=== PATIENT | male | born 1980 | race Caucasian/White ===

== ENCOUNTER 2020-03-06 14:50 | Outpatient (CLI) | payer OTHER, SELFPAY ==
[2020-03-07 14:38] LABS: SARS-CoV-2 RNA PCR Negative
== END 2020-03-06 14:51 | disposition home or self-care (01) ==
LOC: CHSLAB 14:54
PROVIDERS: PCP Nurse Practitioner Family; Visit Provider Nurse Practitioner Family
DX: Z20.828 Contact with and (suspected) exposure to other viral communicable diseases (principal)
CPT/HCPCS: 87635; C9803; U0003

== ENCOUNTER 2020-03-30 08:34 | Outpatient (CLI) | payer OTHER, SELFPAY ==
[2020-03-31 13:55] LABS: SARS-CoV-2 RNA PCR Negative
== END 2020-03-30 08:35 | disposition home or self-care (01) ==
LOC: CHSLAB 08:37
PROVIDERS: PCP Nurse Practitioner Family; Visit Provider Nurse Practitioner Family
DX: Z20.828 Contact with and (suspected) exposure to other viral communicable diseases (principal)
CPT/HCPCS: 87635; C9803; U0003

== ENCOUNTER 2020-06-01 08:46 | Outpatient (CLI) | payer OTHER, SELFPAY ==
[2020-06-02 01:18] LABS: SARS-CoV-2 RNA PCR Negative
== END 2020-06-01 08:47 | disposition home or self-care (01) ==
LOC: CHSLAB 08:49
PROVIDERS: PCP Family Medicine; Visit Provider Family Medicine
DX: Z20.828 Contact with and (suspected) exposure to other viral communicable diseases (principal)
CPT/HCPCS: 87635; C9803; U0003

== ENCOUNTER 2020-08-06 15:53 | Outpatient (CLI) | payer OTHER, SELFPAY ==
[2020-08-07 19:17] LABS: SARS-CoV-2 RNA PCR Negative
== END 2020-08-06 15:54 | disposition home or self-care (01) ==
LOC: CHSLAB 15:58
PROVIDERS: PCP Nurse Practitioner Family; Visit Provider Nurse Practitioner Family
DX: Z20.822 Contact with and (suspected) exposure to COVID-19 (principal)
CPT/HCPCS: C9803; U0003; U0005

== ENCOUNTER 2020-08-19 08:25 | Outpatient (CLI) | payer OTHER, SELFPAY ==
--- NOTE | ~2020-08-19 | XR_ITS ---
EXAMINATION: XR UGIAC w barium swallow DATE: 08/19/2020 09:14 INDICATION: Dysphagia, oropharyngeal phase TECHNIQUE: The patient drank thick barium, gas-producing crystals, and thin barium. Conventional supi ne abdomen radiographs and fluoroscopy of the esophagus, stomach, and proximal small bowel were perfo rmed. Fluoroscopy exposure time was 2.1 minutes. The DAP for this procedure was 19.207 Gycm2. COMPARISON: None. FINDINGS: There is no mass or stricture of the esophagus. Esophageal motility is normal. There is no hiatal hernia. There was a moderate amount of spontaneous gastroesophageal reflux. The stomach and pr oximal small bowel show normal folding patterns. IMPRESSION: 1. Moderate amount of spontaneous gastroesophageal reflux. Reviewed, dictated and finalized at location A. AN BPM DEVELOPER
== END 2020-08-19 08:26 | disposition home or self-care (01) ==
PROVIDERS: PCP Nurse Practitioner Family; Visit Provider Internal Medicine Gastroenterology
DX: R13.12 Dysphagia, oropharyngeal phase (principal); K21.9 Gastro-esophageal reflux disease without esophagitis
CPT/HCPCS: 74246

== ENCOUNTER 2021-03-03 10:32 | Outpatient (CLI) | payer OTHER, SELFPAY ==
[2021-03-03 10:45] LABS: Hematocrit 46.8 % (40.0-54.0); Hemoglobin 15.7 g/dL (14.0-18.0); Mean Corpuscular HGB Conc 33.5 g/dL (32.0-36.0); Mean Corpuscular Hemoglobin 29.3 pg (27.0-31.0); Mean Corpuscular Volume 87.3 fL (78.0-102.0); Mean Platelet Volume 11.2 fl (8.7-11.0); Platelet Count Result 220 K/mm3 (150-420); Red Blood Count 5.36 M/mm3 (4.70-6.10); Red Cell Distribution Width 13.1 % (11.6-14.4); White Blood Count 4.8 K/mm3 (4.8-10.8)
[2021-03-03 11:28] LABS: Alanine Aminotransferase 30 U/L (16-63); Albumin Level 4.4 g/dL (3.4-5.0); Alkaline Phosphatase 74 U/L (46-116); Anion Gap 9 mmol/L (8-16); Aspartate Amino Transferase 16 U/L (15-37); Bilirubin,Total 1.1 mg/dL (0.00-1.00); Blood Urea Nitrogen 10 mg/dL (7-18); Calcium 9.1 mg/dL (8.5-10.1); Carbon Dioxide 29 mmol/L (21-32); Chloride 106 mmol/L (98-108); Cholesterol 200 mg/dL (0-200); Estimated Glomerular Filt Rate > 60; Glucose 94 mg/dL (70-99); HDL Direct 48 mg/dL (40-60); LDL Cholesterol Calculated 130 mg/dL (<130); Osmolality Calculated 297 mOsm/kg (285-295); Potassium 4.4 mmol/L (3.5-5.1); Sodium 144 mmol/L (136-145); Total Protein 7.5 g/dL (6.4-8.2); Triglycerides 111 mg/dL (0-150)
== END 2021-03-03 10:33 | disposition home or self-care (01) ==
LOC: CHSLAB 10:35
PROVIDERS: PCP Family Medicine; Visit Provider Family Medicine
DX: N52.9 Male erectile dysfunction, unspecified (principal)
CPT/HCPCS: 36415; 80053; 80061; 85027

== ENCOUNTER 2022-09-05 10:55 | Outpatient (CLI) | payer OTHER, SELFPAY ==
[2022-09-05 11:06] LABS: Hematocrit 45.5 % (40.0-54.0); Hemoglobin 15.7 g/dL (14.0-18.0); Mean Corpuscular HGB Conc 34.5 g/dL (32.0-36.0); Mean Corpuscular Hemoglobin 28.9 pg (27.0-31.0); Mean Corpuscular Volume 83.8 fL (78.0-102.0); Mean Platelet Volume 11.4 fl (8.7-11.0); Platelet Count Result 201 K/mm3 (150-420); Red Blood Count 5.43 M/mm3 (4.70-6.10); Red Cell Distribution Width 12.4 % (11.6-14.4); White Blood Count 5.4 K/mm3 (4.8-10.8)
[2022-09-05 12:01] LABS: Alanine Aminotransferase 49 U/L (16-63); Albumin Level 4.5 g/dL (3.4-5.0); Alkaline Phosphatase 76 U/L (46-116); Anion Gap 10 mmol/L (8-16); Aspartate Amino Transferase 27 U/L (15-37); Bilirubin,Total 1.1 mg/dL (0.00-1.00); Blood Urea Nitrogen 10 mg/dL (7-18); Calcium 9.3 mg/dL (8.5-10.1); Carbon Dioxide 31 mmol/L (21-32); Chloride 103 mmol/L (98-108); Cholesterol 250 mg/dL (0-200); Estimated Glomerular Filt Rate > 60; Glucose 99 mg/dL (70-99); HDL Direct 49 mg/dL (40-60); LDL Cholesterol Calculated 149 mg/dL (<130); Osmolality Calculated 297 mOsm/kg (285-295); Potassium 4.1 mmol/L (3.5-5.1); Sodium 144 mmol/L (136-145); Total Protein 7.9 g/dL (6.4-8.2); Triglycerides 262 mg/dL (0-150)
== END 2022-09-05 10:56 | disposition home or self-care (01) ==
LOC: CHSLAB 10:57
PROVIDERS: PCP Family Medicine; Visit Provider Family Medicine
DX: N52.9 Male erectile dysfunction, unspecified (principal)
CPT/HCPCS: 36415; 80053; 80061; 85027

== ENCOUNTER 2022-09-14 07:35 | Outpatient (CLI) | payer OTHER, SELFPAY ==
--- NOTE | ~2022-09-14 | XR_ITS ---
EXAMINATION: XR barium swallow DATE: 09/14/2022 09:04 INDICATION: Globus feeling. TECHNIQUE: The patient drank thick barium, gas-producing crystals, and thin barium. Fluoroscopy of th e hypopharynx and esophagus was performed. Fluoroscopy exposure time was 0.2 minutes. The total numbe r of images was 215. The dose-area product was 1.48 Gy-cm^2. COMPARISON: None. FINDINGS: There is no mass or stricture of the esophagus. Esophageal motility is normal. There is no hiatal hernia. There was no gastroesophageal reflux with provocative maneuvers. IMPRESSION: 1. Normal esophagram. Reviewed, dictated and finalized at location A. COMMISSIONING TECHNICIAN IMPRESSION: 1. Normal esophagram.
== END 2022-09-14 07:36 | disposition home or self-care (01) ==
LOC: CHSIMG 07:37
PROVIDERS: PCP Family Medicine; Visit Provider Family Medicine
DX: R09.89 Other specified symptoms and signs involving the circulatory and respiratory systems (principal)
CPT/HCPCS: 74220

== ENCOUNTER 2022-12-19 07:40 | Outpatient (CLI) | payer OTHER, SELFPAY ==
[2022-12-19 08:32] LABS: HIV 1 P24 AG Negative (Negative); HIV 1/2 AB Negative (Negative)
[2022-12-24 03:15] LABS: Hepatitis A Antibody IgM Nonreactive; Hepatitis B Core Antibody Nonreactive (Nonreactive); Hepatitis B Surface Antigen Nonreactive (Nonreactive); Hepatitis C Signal to Cutoff 0.02 ratio (<1.00); Hepatitis C Virus Antibody Nonreactive (Nonreactive)
== END 2022-12-19 07:41 | disposition home or self-care (01) ==
LOC: CHSLAB 07:42
PROVIDERS: PCP Family Medicine; Visit Provider Family Medicine
DX: Z20.2 Contact with and (suspected) exposure to infections with a predominantly sexual mode of transmission (principal); Z72.51 High risk heterosexual behavior
CPT/HCPCS: 36415; 80074; 86703; 87491; 87591; 87661

== ENCOUNTER 2024-08-29 07:08 | Outpatient (CLI) | payer OTHER, SELFPAY ==
--- OUTSIDE RECORDS SUMMARY | 2024-08-29 07:11 | XMS_ITS | Continuity of Care Document ---
Author Organization [facility] Address [address] [place] [address] [address] [place] [address] Phone Care Team Providers Care Transition Assistant Name Role Phone Ras PT,MPT,ATC, C[place] Unavailable Unavai lable Procedures Procedure Date Therapeutic Activities Neuromuscular Re-Ed Therapeutic Exercise Therapeutic Activities Neuromuscular Re-Ed Therapeutic Exercise Therapeutic Activities Neuromuscular Re-Ed Therapeutic Exercise Therapeutic Activities Neuromuscular Re-Ed Therapeutic Exercise Therapeutic Activities Neuromuscular Re-Ed Therapeutic Exercise Therapeutic Activities Neuromuscular Re-Ed Therapeutic Exercise Therapeutic Activities Neuromuscular Re-Ed Therapeutic Exercise Therapeutic Activities Neuromuscular Re-Ed Therapeutic Exercise Therapeutic Activities Neuromuscular Re-Ed Therapeutic Exercise Therapeutic Activities Neuromuscular Re-Ed Therapeutic Exercise Therapeutic Activities Neuromuscular Re-Ed Therapeutic Exercise PT Evaluation Moderate Complexity Therapeutic Activities Therapeutic Exercise Neuromuscular Re-Ed Advance Directives Directive Yes / No Effective Date File Name No Information Encounters Encounter Description Practice Location Reason(s) For Visit Diagnoses Date Provider Providers Copied on Encounter [facility], [place], [place], [id number], tel:[phone] [place] No Information Oct-- 3 Ras Suh , [place], [place]. [facility], [place], [place], [id number], tel:[phone] [place] No Information Sep- 3 Koffi Rubio. . Referring Provider: Fabricio Euceda , [address] [place], [address]. tel:[phone] [facility], [place], [place], [id number], tel:[phone] [place] No Information Mar- 3 Ras Suh [place], [place]. Referring Provider: Fabricio Euceda , [address] [place], [address]. tel:[phone] [facility] [address] [facility], [place], [place], [address], tel:[phone] [place] No Information Sep-1 3 Ras Suh [place], [place], [place]. Referring Provider: Fabricio Euceda , [address] [place], [address]. tel:[phone] [facility], [place], [place], [id number], [place] tel:[phone] [place] No Information Sep-0 3 Ras Suh [place], [place]. Referring Provider: Fabricio Euceda , [address] [place], [address]. tel:[phone] [facility], [place], [place], [address], [place] tel:[phone] [place] No Information Sep-0 3 Mcginnis Cachorro. , [place], [place]. Referring Provider: Fabricio Euceda , [address] [facility] [address], [place], [address]. tel:[phone] [facility], [place], [place], [address], [place] tel:[phone] [place] No Information 3 Mcginnis Cachorro. , [place], [place]. Referring Provider: Fabricio Euceda , [address] [facility] [address], [place], [address]. tel:[phone] [facility], [address], [place], [place], [address], [place] tel:[phone] [place] No Information 3 [place] C[place]. , [place], [place]. Referring Provider: Fabricio Euceda , [address] [place], [address]. tel:[phone] [facility], [place], [place], [address], [place] tel:[phone] [place] No Information 3 Mcginnis Cachorro. , [place], [place]. Referring Provider: Fabricio Euceda , [address] [place], [address]. tel:[phone] [facility], [place], [place], [address], [place] tel:[phone] [place] No Information Feb- 3 [place] C[place]. , [place], [place]. Referring Provider: Fabricio Euceda , [address] [facility] [address], [place], [address]. tel:[phone] [facility], [place], [place], [address], [place] tel:[phone] [place] No Information 3 Ezequiel Costello. . Referring Provider: Fabricio Euceda , [address] [place], [address]. tel:[phone] [facility], [address], [place], [place], [address], tel:[phone] [place] No Information 3 Ras Suh [place], [place]. Referring Provider: Fabricio Euceda , [address] [place], [address]. tel:[phone] [facility], [address], [place], [place], [address], tel:[phone] [place] No Information 3 Ezequiel Costello. . Referring Provider: Fabricio Euceda , [address] [place], [address]. tel:[phone] Family History Family Member Type Diagnosis Age At Onset No Information Payers Payer name Insurance type Covered libertarian ID Taryn kelley(s) Lorena Banerjee [facility] 00 Social History Type Description Quantity Date Captured Comments Sex Male Smoking Status No Information Chief Complaint And Reason For Visit No Information Reason For Referral Reason For Referral No Information History Of Present Illness Encounter Date Complaint History Of Prese nt Illness No Information Functional Status Date Functional Assessmen t No Information Instructions Date Instruction Additional Infor jaceion Giving encouragement to exercise Related to Overweight Giving encouragement to exercise Related to Overweight Giving encouragement to exercise Related to Overweight Giving encouragement to exercise Related to Overweight Assessments Type Assessment Date No Information Patient Care Teams Name Effective Dates (start - stop) Status Members No Information
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
--- OUTSIDE RECORDS SUMMARY | 2024-08-29 07:12 | XMS_ITS | Referral Summary ---
Author Organization [address] [address] Care Team Providers Care Mechanical Design Engineer Facilities Name Role Phone Unknown, Notinfile Primary Care Provider Unavail able Encounters Date Type Department Care Team Description 07/16/2024 11:37 AM REAL ESTATE DEVELOPER - 07/16/2024 11:59 PM REAL ESTATE DEVELOPER Hospital Encounter [address] [address] Pharyngitis, unspecified etiology Discharge Disposition: Discharge to home or self care 07/16/2024 11:15 AM REAL ESTATE DEVELOPER Office Visit [facility] at [address] [address] Kellen Martin NP Pharyngitis, unspecified etiology (Primary Dx) from Last 3 Months Allergies No known active allergies Medications tadalafiL (ADCIRCA) 10 mg tablet PLEASE SEE ATTACHED FOR DETAILED DIRECTIONS 4 Active lidocaine viscous (XYLOCAINE) 2 % solutionIndicati ons:Pharyngitis, unspecified etiology Gargle and spit 5 mls every six hours as needed for discomfort. Do not exceed maximum dose of of 4 times daily. 100 mL 5 Active Active Problems No known active problems Social History Tobacco Use Types Packs/Day Years Used Date Smoking Tobacco: Never Assessed Sex and Gender Information Value Date Recorded Sex Assigned at Not on file Legal Sex Male 3:34 AM REAL ESTATE DEVELOPER Gender Identity Not on file Sexual Orientation Not on file Last Filed Vital Signs Vital Sign Reading Time Taken Comments Blood Pressure 130/84 07/16/2024 11:26 AM REAL ESTATE DEVELOPER Pulse 83 07/16/2024 11:26 AM REAL ESTATE DEVELOPER Temperature 37.1 C (98.8 F) 07/16/2024 11:26 AM REAL ESTATE DEVELOPER Respiratory Rate 22 07/16/2024 11:26 AM REAL ESTATE DEVELOPER Oxygen Saturation 98% 07/16/2024 11:26 AM REAL ESTATE DEVELOPER Inhaled Oxygen Concentration - - Weight 118.4 kg (261 lb) 07/16/2024 11:26 AM REAL ESTATE DEVELOPER Height 182.9 cm (6') 07/16/2024 11:26 AM REAL ESTATE DEVELOPER Body Mass Index 35.4 07/16/2024 11:26 AM REAL ESTATE DEVELOPER Plan of Treatment Not on file Procedures Procedure Name Priority Date/Time Associated Diagnosis Comments THROAT CULTURE Routine 07/16/2024 11:37 AM REAL ESTATE DEVELOPER Pharyngitis, unspecified etiology POCT RAPID STREP Routine 07/16/2024 11:2 7 AM REAL ESTATE DEVELOPER Pharyngitis, unspecified etiology from Last 3 Months Results * Throat culture Throat (07/16/2024 11:37 AM REAL ESTATE DEVELOPER) Report Final Report: No growth of pathogens. Comment:Testing performed by : [facility], [address] [place]., [address] Throat 07/16/2024 11:3 7 AM REAL ESTATE DEVELOPER 07/16/2024 6:07 PM REAL ESTATE DEVELOPER Narrative STEW[facility] Friedman 07/17/2024 5:53 PM REAL ESTATE DEVELOPER Testing performed by [facility] Microbiology Laboratory ([phone]). us Kellen Martin NP LAB MICROBIOLOGY - GENERAL ORD ERABLES Final Result [facility] [address] Department [place] [address] * POCT rapid strep A (07/16/2024 11:27 AM REAL ESTATE DEVELOPER) Rapid Strep A, POC Negative Negative Swab 07/16/2024 11:2 7 AM REAL ESTATE DEVELOPER us Kellen Martin NP POINT OF CARE TEST ORDERABLES Final Result from Last 3 Months Insurance [employer] HMO/POS Care Teams Mechanical Design Engineer Facilities Relationship Specialty Start Date End Date Unknown, Notinfile PCP - General 07/16/24
--- OUTSIDE RECORDS SUMMARY | 2024-08-29 07:12 | XMS_ITS | Clinical Summary ---
Author Organization [address] Address [address] [place] [address] Care Team Providers Care Floor Mechanic Name Role Phone Unknown, Notinfile Primary Care Provider Unavail able Allergies No known active allergies Medications tadalafiL (ADCIRCA) 10 mg tablet PLEASE SEE ATTACHED FOR DETAILED DIRECTIONS 4 Active lidocaine viscous (XYLOCAINE) 2 % solutionIndicati ons:Pharyngitis, unspecified etiology Gargle and spit 5 mls every six hours as needed for discomfort. Do not exceed maximum dose of of 4 times daily. 100 mL 5 Active Active Problems No known active problems Encounters Date Type Department Care Team Description 07/16/2024 11:37 AM CABINETMAKER HELPER - 07/16/2024 11:59 PM CABINETMAKER HELPER Hospital Encounter [address] [address] Pharyngitis, unspecified etiology Discharge Disposition: Discharge to home or self care 07/16/2024 11:15 AM CABINETMAKER HELPER Office Visit [facility] at [address] [address] Kellen Martin NP Pharyngitis, unspecified etiology (Primary Dx) from Last 3 Months Social History Tobacco Use Types Packs/Day Years Used Date Smoking Tobacco: Never Assessed Sex and Gender Information Value Date Recorded Sex Assigned at Not on file Legal Sex Male 3:34 AM CABINETMAKER HELPER Gender Identity Not on file Sexual Orientation Not on file Last Filed Vital Signs Vital Sign Reading Time Taken Comments Blood Pressure 130/84 07/16/2024 11:26 AM CABINETMAKER HELPER Pulse 83 07/16/2024 11:26 AM CABINETMAKER HELPER Temperature 37.1 C (98.8 F) 07/16/2024 11:26 AM CABINETMAKER HELPER Respiratory Rate 22 07/16/2024 11:26 AM CABINETMAKER HELPER Oxygen Saturation 98% 07/16/2024 11:26 AM CABINETMAKER HELPER Inhaled Oxygen Concentration - - Weight 118.4 kg (261 lb) 07/16/2024 11:26 AM CABINETMAKER HELPER Height 182.9 cm (6') 07/16/2024 11:26 AM CABINETMAKER HELPER Body Mass Index 35.4 07/16/2024 11:26 AM CABINETMAKER HELPER Plan of Treatment Health Maintenance Due Date Last Done Comments Depression Screening 1979 Hepatitis C Screening 1980 Varicella Vaccines (1 of 2 - 13+ 2-dose series) 09/17/1992 Hepatitis B Screening 09/17/1997 Regular Well Visit/Exam 18-64 09/17/1997 Covid-19 Vaccine ( season) 2024 10/25/2023, 06/29/2021, 09/08/2020, Additional history exists DTaP/Tdap/Td Vaccine (3 - Td or Tdap) 10/24/2033 10/25/2023, 12/26/2012 Influenza Vaccine Completed 04/23/2024, , 04/18/2022, Additional history exists HPV Vaccines Aged Out No longer eligi ble based on patient's age to complete this topic Pneumococcal vaccine <65 Aged Out No longer eligible based on patient's age to complete this topic Procedures Procedure Name Priority Date/Time Associated Diagnosis Comments THROAT CULTURE Routine 07/16/2024 11:37 AM CABINETMAKER HELPER Pharyngitis, unspecified etiology POCT RAPID STREP Routine 07/16/2024 11:2 7 AM CABINETMAKER HELPER Pharyngitis, unspecified etiology from Last 3 Months Results * Throat culture Throat (07/16/2024 11:37 AM CABINETMAKER HELPER) Report Final Report: No growth of pathogens. Comment:Testing performed by : [facility], [address] [facility], [place]., [address] Throat 07/16/2024 11:3 7 AM CABINETMAKER HELPER 07/16/2024 6:07 PM CABINETMAKER HELPER Narrative CERNER CH - 07/17/2024 5:53 PM CABINETMAKER HELPER Testing performed by [facility] Microbiology Laboratory ([phone]). Kellen Martin NP LAB MICROBIOLOGY - GENERAL ORD ERABLES Final Result [facility]WIN [address] Department [place] [address] * POCT rapid strep A (07/16/2024 11:27 AM CABINETMAKER HELPER) Rapid Strep A, POC Negative Negative Swab 07/16/2024 11:2 7 AM CABINETMAKER HELPER Kellen Martin NP POINT OF CARE TEST ORDERABLES Final Result from Last [address] [address] [address] HMO/POS Care Teams Floor Mechanic Relationship Specialty Start Date End Date Unknown, Notinfile PCP - General 07/16/24
[2024-08-29 07:20] LABS: Basophils Absolute Auto 0.02 K/mm3 (0.00-0.10); Basophils Percent Auto 0.4 % (0.0-1.0); Eosinophils Absolute Auto 0.09 K/mm3 (0.02-0.50); Eosinophils Percent Auto 1.8 % (1.0-6.0); Hematocrit 43.5 % (40.0-54.0); Hemoglobin 15.2 g/dL (14.0-18.0); Immature Granulocyte Absolute 0.02 K/mm3 (0.00-0.00); Immature Granulocyte Percent A 0.4 % (0.0-0.0); Lymphocytes Absolute Auto 2.32 K/mm3 (1.10-4.50); Lymphocytes Percent Auto 47.2 % (18.0-42.0); Mean Corpuscular HGB Conc 34.9 g/dL (32-36); Mean Corpuscular Hemoglobin 28.8 pg (27.0-31.0); Mean Corpuscular Volume 82.5 fL (78.0-102.0); Mean Platelet Volume 11.2 fl (8.7-11.0); Monocytes Absolute Auto 0.37 K/mm3 (0.10-0.90); Monocytes Percent Auto 7.5 % (2.0-11.0); Neutrophils Percent Auto 42.7 % (50.0-70.0); Platelet Count Result 189 K/mm3 (150-420); Red Blood Count 5.27 M/mm3 (4.70-6.10); Red Cell Distribution Width 12.4 % (11.6-14.4); White Blood Count 4.9 K/mm3 (4.8-10.8)
[2024-08-29 07:47] LABS: Alanine Aminotransferase 41 U/L (16-63); Albumin Level 4.3 g/dL (3.4-5.0); Alkaline Phosphatase 91 U/L (46-116); Anion Gap 9 mmol/L (4-12); Aspartate Amino Transferase 20 U/L (15-37); Bilirubin,Total 1.3 mg/dL (0.00-1.00); Blood Urea Nitrogen 15 mg/dL (7-18); Carbon Dioxide 30 mmol/L (21-32); Chloride 103 mmol/L (98-108); Cholesterol 220 mg/dL (0-200); Estimated Glomerular Filt Rate > 60; Glucose 103 mg/dL (70-99); HDL Direct 47 mg/dL (40-60); LDL Cholesterol Calculated 128 mg/dL (<130); Osmolality Calculated 294 mOsm/kg (285-295); Potassium 4.1 mmol/L (3.5-5.1); Sodium 142 mmol/L (136-145); Total Protein 7.5 g/dL (6.4-8.2); Triglycerides 227 mg/dL (0-150)
[2024-08-29 07:54] LABS: Thyroid Stimulating Hormone Reflex 4.71 u/IU/mL (0.36-3.74)
== END 2024-08-29 07:09 | disposition home or self-care (01) ==
LOC: CHSLAB 07:10
PROVIDERS: PCP Family Medicine; Visit Provider Family Medicine
DX: E03.9 Hypothyroidism, unspecified (principal); N52.9 Male erectile dysfunction, unspecified
CPT/HCPCS: 36415; 80053; 80061; 84439; 84443; 85025

== ENCOUNTER 2024-11-25 07:43 | Outpatient (CLI) | payer OTHER, SELFPAY ==
--- OUTSIDE RECORDS SUMMARY | 2024-11-25 07:47 | XMS_ITS | Referral Summary ---
Author Organization [address] Address [address] [place] [address] Care Team Providers Care Laboratory Technical Specialist Name Role Phone Unknown, Notinfile Primary Care [...] on file Legal Sex Male 3:34 AM TREASURY CONSULTANT Gender Identity Not on file Sexual Orientation Not on file Last Filed Vital Signs Vital Sign Reading Time Taken Comments Blood Pressure 130/84 07/16/2024 11:26 AM TREASURY CONSULTANT Pulse 83 07/16/2024 11:26 AM TREASURY CONSULTANT Temperature 37.1 C (98.8 F) 07/16/2024 11:26 AM TREASURY CONSULTANT Respiratory Rate 22 07/16/2024 11:26 AM TREASURY CONSULTANT Oxygen Saturation 98% 07/16/2024 11:26 AM TREASURY CONSULTANT Inhaled Oxygen Concentration - - Weight 118.4 kg (261 lb) 07/16/2024 11:26 AM TREASURY CONSULTANT Height 182.9 cm (6') 07/16/2024 11:26 AM TREASURY CONSULTANT Body Mass Index 35.4 07/16/2024 11:26 AM TREASURY CONSULTANT Plan of Treatment Not on file Insurance [employer] HMO/POS Care Teams Laboratory Technical Specialist Relationship Specialty Start Date End Date Unknown, Notinfile PCP - General 07/16/24
--- OUTSIDE RECORDS SUMMARY | 2024-11-25 07:47 | XMS_ITS | Clinical Summary ---
Author Organization [address] Address [address] [place] [address] Care Team Providers Care Form Tamper Operator Name Role Phone Unknown, Notinfile Primary Care [...] on file Legal Sex Male 3:34 AM TUNNEL INSPECTOR Gender Identity Not on file Sexual Orientation Not on file Last Filed Vital Signs Vital Sign Reading Time Taken Comments Blood Pressure 130/84 07/16/2024 11:26 AM TUNNEL INSPECTOR Pulse 83 07/16/2024 11:26 AM TUNNEL INSPECTOR Temperature 37.1 C (98.8 F) 07/16/2024 11:26 AM TUNNEL INSPECTOR Respiratory Rate 22 07/16/2024 11:26 AM TUNNEL INSPECTOR Oxygen Saturation 98% 07/16/2024 11:26 AM TUNNEL INSPECTOR Inhaled Oxygen Concentration - - Weight 118.4 kg (261 lb) 07/16/2024 11:26 AM TUNNEL INSPECTOR Height 182.9 cm (6') 07/16/2024 11:26 AM TUNNEL INSPECTOR Body Mass Index 35.4 07/16/2024 11:26 AM TUNNEL INSPECTOR Plan of Treatment Health Maintenance Due Date Last Done Comments Colon Cancer Screening-Colonoscopy 1979 Depression Screening 1979 Hepatitis C Screening 1979 [...] on patient's age to complete this topic Insurance [employer] HMO/POS Care Teams Form Tamper Operator Relationship Specialty Start Date End Date Unknown, Notinfile PCP - General 07/16/24
== END 2024-11-25 07:44 | disposition home or self-care (01) ==
LOC: CHSLAB 07:45
PROVIDERS: PCP Family Medicine; Visit Provider Family Medicine
DX: E03.9 Hypothyroidism, unspecified (principal)
CPT/HCPCS: 36415; 84443

== ENCOUNTER 2025-04-23 15:49 | Outpatient (CLI) | payer OTHER, SELFPAY ==
[2025-04-23 16:38] LABS: Alanine Aminotransferase 26 U/L (6-50); Albumin Level 4.9 g/dL (3.5-5.1); Alkaline Phosphatase 73 U/L (38-126); Aspartate Amino Transferase 31 U/L (17-59); Bilirubin,Total 0.9 mg/dL (0.2-1.3); Total Protein 8.5 g/dL (6.3-8.2)
--- OUTSIDE RECORDS SUMMARY | 2025-04-23 17:35 | XMS_ITS | Clinical Summary ---
Author Organization [facility] Address [address] [place] [id number] Care Team Providers Care Wax Room Supervisor Name Role Phone Unknown, Notinfile Primary Care [...] 4 times daily. 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 5 Active Active Problems No known active problems Encounters Date Type Department Care Team Description 01/23/2025 11:45 AM CDT Office Visit [facility] Care at [address] [place] [address] Monroe Moncada DO Closed displaced fracture of distal phalanx of right ring finger with routine healing, subsequent encounter (Primary Dx); Acquired mallet finger of right hand 01/23/2025 11:30 AM CDT Ancillary Procedure [facility] Imaging at [address] [id number] Acquired mallet finger of right hand; Closed displaced fracture of distal phalanx of right ring finger with routine healing, subsequent encounter from Last 3 Months Surgical History Surgery Date Site/Laterality Comments APPENDECTOMY Family History Medical History Relation Name Comments No Known Problems Father No Known Problems Mother No Known Problems Sister Relation Name Status Comments Father Alive Mother Alive Sister Alive Social History Tobacco Use Types Packs/Day Years Used Date Smoking Tobacco: Never Smokeless Tobacco: Never Tobacco Cessation:Counseling Given: No AUDIT-C Answer Date Recorded Q1: How often do you have a drink containing alc ohol? 2-3 times a week 11/27/2024 Q2: How many drinks containi ng alcohol do you have on a typical day when you are drinking? 3 or 4 11/27/2024 Q3: How often do you have si x or more drinks on one occasion? 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 Gender Identity Not on file Sexual Orientation Not on file Obstetrics History Last Filed Vital Signs Vital Sign Reading Time Taken Comments Blood Pressure 136/94 01/23/2025 11:39 AM CDT Pulse 70 01/23/2025 11:39 AM CDT Temperature 37.1 C (98.8 F) 07/16/2024 11:26 AM REFRACTORY SPECIALIST Respiratory Rate 18 11/27/2024 1:25 PM CDT Oxygen Saturation 98% 07/16/2024 11:26 AM REFRACTORY SPECIALIST Inhaled Oxygen Concentration - - Weight 112.9 kg (249 lb) 01/23/2025 11:39 AM CDT Height 182.9 cm (6') 01/23/2025 11:39 AM CDT Body Mass Index 33.77 01/23/2025 11:39 AM CDT Plan of Treatment Health Maintenance Due Date Last Done Comments Colon Cancer Screening-Colonoscopy 1979 Depression Screening 1979 Hepatitis C Screening 1979 Varicella Vaccines (1 of 2 - 13+ 2-dose series) 09/17/1992 Hepatitis B Screening 09/17/1997 Regular Well Visit/Exam 18-64 09/17/1997 HPV Vaccines (1 - 3-dose SCDM series) 09/17/2006 Covid-19 Vaccine ( season) 2025 10/25/2023, 06/29/2021, 09/08/2020, Additional history exists Influenza Vaccine (#1) 2025 , 05/10/2023, 04/18/2022, Additional history exists DTaP/Tdap/Td Vaccine (3 - Td or Tdap) 10/24/2033 10/25/2023, 12/26/2012 Pneumococcal vaccine <65 Aged Out No longer eligible based on patient's age to complete this topic Procedures Procedure Name Priority Date/Time Associated Diagnosis Comments XR HAND RIGHT 3 OR MORE VIEWS Routine 01/23/2025 11:32 AM CDT Acquired mallet finger of right hand Closed displaced fracture of distal phalanx of right ring finger with routine healing, subsequent encounter from Last 3 Months Results * XR Hand Right 3 or More Views (01/23/2025 11:32 AM CDT) Anatomical Region Laterality Modality Upper Extremities, Hand Right Digital Radiography 01/23/2025 1:54 PM CDT Narrative 01/23/2025 1:57 PM CDT EXAM DESCRIPTION: XR HAND RIGHT 3 OR MORE VIEWS REASON FOR STUDY: pain 5..25 fracture follow up TECHNIQUE: There are 3 radiographic view(s) of the right hand . COMPARISON: Prior exam 12/31/2024 and 11/27/2024 FINDINGS: Again best seen on the lateral view is an avulsion fracture of the dorsal base of the distal phalanx of the right 4th/ring finger. There does appear to have been some interval callus formation suggesting component of healing in the interval. Otherwise, no change in alignment or positioning. No other fracture is seen. IMPRESSION: Again seen is an avulsion fracture of the dorsal base of the distal phalanx of the right 4th/ring finger with some interval callus formation suggesting component of healing in the interval. Continued follow-up recommended. THIS IS AN ELECTRONICALLY VERIFIED FINAL REPORT 01/23/2025 1:57 PM - Electronically signed by Monroe HURLEY T: Report ID: [id number] Reading Location: [id number] Procedure Note Monroe Cameron MD - 01/23/2025 EXAM DESCRIPTION: XR HAND RIGHT 3 OR MORE VIEWS REASON FOR STUDY: pain 5.21.25 fracture follow up TECHNIQUE: There are 3 radiographic view(s) of the right hand . COMPARISON: Prior exam 12/31/2024 and 11/27/2024 FINDINGS: Again best seen on the lateral view is an avulsion fracture ofthe dorsal base of the distal phalanx of the right 4th/ring finger. Theredoes appear to have been some interval callus formation suggesting component of healing in the interval. Otherwise, no change in alignment orpositioning. No other fracture is seen. IMPRESSION: Again seen is an avulsion fracture of the dorsal base of the distal phalanx of the right 4th/ring finger with some interval callus formation suggesting component of healing in the interval. Continued follow-up recommended. THIS IS AN ELECTRONICALLY VERIFIED FINAL REPORT 01/23/2025 1:57 PM - Electronically signed by Monroe Cameron M.D. MJ T: Report ID: [id number] Reading Location: [place] [address] Monroe Moncada DO IMG XR PROCEDURES Adriana l Result from Last 3 Months Insurance [facility] HMO/POS Care Teams Wax Room Supervisor Relationship Specialty Start Date End Date Unknown, Notinfile PCP - General 07/16/24
== END 2025-04-23 15:50 | disposition home or self-care (01) ==
LOC: CHSLAB 15:53
PROVIDERS: PCP Family Medicine; Visit Provider Family Medicine
DX: B35.1 Tinea unguium (principal)
CPT/HCPCS: 36415; 80076